=== PATIENT | female | born 1995 | race Hispanic/Latino ===

== ENCOUNTER 2018-11-11 14:59 | Emergency (ER) | payer BC ==
--- NOTE | 2018-11-11 15:21 | EDPHYS ---
Physician Documentation [facility] Name: Lake Anderson Age: 23 yrs Sex: Female : 1995 Arrival Date: 11/11/2018 Time: 15:02 Bed 30 Private MD: Fantasam Rocha ED Physician Dru Viveros HPI: 11/11 15:17 This 23 yrs old Female presents to ER via Ambulatory with complaints of ma2 Headache, High Blood Pressure. 15:17 The patient complains of pain to the forehead. Onset: The symptoms/episode ma2 began/occurred gradually, 2 day(s) ago. Severity of symptoms: At its worst the pain was mild, in the emergency department the pain has resolved. Headache History: The patient has had previous headaches and this one is similar to previous episodes. The patient has experienced similar episodes in the past. 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 - Social history:: Smoking status: Patient/guardian denies using alcohol, street drugs, The patient lives with family. - Ebola Screening: : Patient denies travel to an Ebola-affected area in the 21 days before illness onset. - Family history:: not pertinent. - Hospitalizations: : No recent hospitalization is reported. ROS: 15:17 Constitutional: Negative for fever, chills, and weight loss, Cardiovascular: Negative ma2 for chest pain, palpitations, and edema, Respiratory: Negative for shortness of breath, cough, wheezing, and pleuritic chest pain, Abdomen/GI: Negative for abdominal pain, nausea, diarrhea, and constipation. 15:17 Neuro: Positive for headache, Negative for dizziness, loss of consciousness, seizure activity, syncope, tremor, weakness. 15:17 All other systems are negative. Exam: 15:17 Constitutional: This is a well developed, well nourished patient who is awake, alert, ma2 and in no acute distress. Chest/axilla: Normal chest wall appearance and motion. Nontender with no deformity. No lesions are appreciated. Cardiovascular: Regular rate and rhythm with a normal S1 and S2. No gallops, murmurs, or rubs. Normal PMI, no JVD. No pulse deficits. Respiratory: Lungs have equal breath sounds bilaterally, clear to auscultation and percussion. No rales, rhonchi or wheezes noted. No increased work of breathing, no retractions or nasal flaring. Abdomen/GI: Soft, non-tender, with normal bowel sounds. No distension or tympany. No guarding or rebound. No evidence of tenderness throughout. Skin: Warm, dry with normal turgor. Normal color with no rashes, no lesions, and no evidence of cellulitis. MS/ Extremity: Pulses equal, no cyanosis. Neurovascular intact. Full, normal range of motion. Neuro: Awake and alert, GCS 15, oriented to person, place, time, and situation. Cranial nerves II-XII grossly intact. Motor strength 5/5 in all extremities. Sensory grossly intact. Cerebellar exam normal. Normal gait. Vital Signs: 15:04 BP 103 / 69; Pulse 68; Resp 16; Temp 98.1; Pulse Ox 100% ; Weight 70.31 kg; Height 5 sv ft. 4 in. (162.56 cm); Pain 5/10; 15:04 Body Mass Index 26.61 (70.31 kg, 162.56 cm) sv Ginger Coma Score: 15:17 Eye Response: spontaneous(4). Verbal Response: oriented(5). Motor Response: obeys ma2 commands(6). Total: 15. MDM: 15:11 Patient medically screened. ma2 15:17 Differential diagnosis: cluster headache, migraine, tension headache. Data reviewed: ma2 vital signs, nurses notes. Counseling: I had a detailed discussion with the patient and/or guardian regarding: the historical points, exam findings, and any diagnostic results supporting the discharge/admit diagnosis, the need for outpatient follow up. Administered Medications: No medications were administered Disposition: 11/11/18 15:19 Discharged to Home. Impression: Other migraine, not intractable. - Condition is Stable. - Discharge Instructions: General Headache Without Cause, Migraine Headache. - Prescriptions for Reglan 10 mg Oral Tablet - take 1 tablet by ORAL route every 6 hours . take 30 minutes before meals and at bedtime; 100 tablet. Zofran 4 mg Oral Tablet - take 1 tablet by ORAL route every 12 hours As needed; 20 tablet. - Medication Reconciliation Form, Thank You Letter, Antibiotic Education, Prescription Opioid Use, Work release form form. - Follow up: Private Physician; When: Tomorrow; Reason: Continuance of care. - Problem is new. - Symptoms are unchanged. Signatures: Anju Murillo RN RN Tosha Chavarria RN RN tw2 Dru Viveros MD MD ma2 Conor Alvarado RN RN mg2 Corrections: (The following items were deleted from the chart) 15:29 15:19 11/11/2018 15:19 Discharged to Home. Impression: Other migraine, not intractable. mg2 Condition is Stable. Forms are Medication Reconciliation Form, Thank You Letter, Antibiotic Education, Prescription Opioid Use. Follow up: Private Physician; When: Tomorrow; Reason: Continuance of care. Problem is new. Symptoms are unchanged. ma2
--- NOTE | 2018-11-11 15:21 | ER ---
Nurse's Notes [facility] Name: Lake Adnerson Age: 23 yrs Sex: Female : 1995 Arrival Date: 11/11/2018 Time: 15:02 Bed 30 Private MD: Fantasma Rocha Diagnosis: Other migraine, not intractable Presentation: 11/11 15:03 Presenting complaint: Patient states: HTN, right sided headache x 3 days. Transition of sv care: patient was not received from another setting of care. Onset of symptoms was November 08, 2018. Care prior to arrival: None. 15:03 Method Of Arrival: Ambulatory sv 15:03 Acuity: JOI 3 sv 15:09 Risk Assessment: Do you want to hurt yourself or someone else? Patient reports no tw2 desire to harm self or others. Initial Sepsis Screen: Does the patient meet any 2 criteria? No. Patient's initial sepsis screen is negative. Does the patient have a suspected source of infection? No. Patient's initial sepsis screen is negative. Triage Assessment: 15:05 General: Appears in no apparent distress. comfortable, Behavior is calm, cooperative, sv appropriate for age. Pain: Complains of pain in right frontal area, right temporal area, right side of forehead, right worship, right eye, right zygomatic area and right cheek. Neuro: Level of Consciousness is awake, alert, obeys commands, Oriented to person, place, time, situation, Moves all extremities. Full function Gait is steady, Speech is normal, Reports headache in right in entire. Respiratory: Respiratory effort is even, unlabored, Respiratory pattern is regular, symmetrical. 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 - Social history:: Smoking status: Patient/guardian denies using alcohol, street drugs, The patient lives with family. - Ebola Screening: : Patient denies travel to an Ebola-affected area in the 21 days before illness onset. - Family history:: not pertinent. - Hospitalizations: : No recent hospitalization is reported. Screenin:09 Abuse screen: Denies threats or abuse. Nutritional screening: No deficits noted. tw2 Tuberculosis screening: No symptoms or risk factors identified. Fall Risk None identified. Assessment: 15:25 General: Appears in no apparent distress. comfortable, Behavior is calm, cooperative. mg2 Pain: Complains of pain in right worship Pain does not radiate. Pain currently is 2 out of 10 on a pain scale. Quality of pain is described as aching, Pain began gradually, 1 day ago. Is intermittent, Alleviated by medications. Neuro: Level of Consciousness is awake, alert, obeys commands, Oriented to person, place, time, situation, Reports headache in right since yesterday. Cardiovascular: Capillary refill < 3 seconds Patient's skin is warm and dry. Respiratory: Reports. GI: No signs and/or symptoms were reported involving the gastrointestinal system. GI: Reports vomiting, 2 times yesterday. : No signs and/or symptoms were reported regarding the genitourinary system. EENT: No signs and/or symptoms were reported regarding the EENT system. Derm: Skin is intact, is healthy with good turgor, Skin is pink, warm \T\ dry. normal. Musculoskeletal: No signs and/or symptoms reported regarding the musculoskeletal system. Vital Signs: 15:04 BP 103 / 69; Pulse 68; Resp 16; Temp 98.1; Pulse Ox 100% ; Weight 70.31 kg; Height 5 sv ft. 4 in. (162.56 cm); Pain 5/10; 15:04 Body Mass Index 26.61 (70.31 kg, 162.56 cm) sv Hurley Coma Score: 15:17 Eye Response: spontaneous(4). Verbal Response: oriented(5). Motor Response: obeys ma2 commands(6). Total: 15. ED Course: 15:02 Patient arrived in ED. as 15:03 Fantasma Rocha MD is Private Physician. as 15:03 Triage completed. sv 15:05 Arm band placed on. sv 15:08 Conor Alvarado, TERRY is Primary Nurse. mg2 15:09 Bed in low position. Call light in reach. tw2 15:11 Dru Viveros MD is Attending Physician. ma2 15:28 No provider procedures requiring assistance completed. Patient did not have IV access mg2 during this emergency room visit. Administered Medications: No medications were administered Outcome: 15:19 Discharge ordered by . ma2 15:28 Discharged to home ambulatory. mg2 15:28 Condition: stable 15:28 Discharge instructions given to patient, Instructed on discharge instructions, follow up and referral plans. medication usage, Demonstrated understanding of instructions, follow-up care, medications, Prescriptions given X 2. 15:29 Patient left the ED. mg2 Signatures: Anju Murillo, RN RN sv Hali Jo Tara, RN RN tw2 Dru Viveros MD MD ma2 Conor Alvarado RN RN mg2 Corrections: (The following items were deleted from the chart) 15:06 15:03 Presenting complaint: Patient states: HTN, headache x 3 days. sv sv 15:06 15:04 Pulse 68bpm; Resp 16bpm; Pulse Ox 100%; Temp 98.1F; 70.31 kg; Height 5 ft. 4 in.; sv BMI: 26.6; Pain 5/10; sv
== END 2018-11-11 15:29 | disposition home or self-care (01) ==
LOC: ER 14:59
DX: G43.809 Other migraine, not intractable, without status migrainosus (principal)
CPT/HCPCS: 99282